=== PATIENT | female | born 1955 | race Caucasian/White ===

== ENCOUNTER 2016-09-30 17:07 | Emergency (ER) | payer MEDICARE, OTHER ==
[~2016-09-30 17:07] MED LIST: ALLEGRA ALLERG180 MG PO; AMITRIPTYLINE H50 MG PO; B-121000 MCG PO; BACTROBAN22 GM TOP; CUBICIN500 MG/10 IV; CYMBALTA60 MG PO; DIABETA5 MG PO; INVANZ IV; JANUVIA100 MG PO; LASIX20 MG PO; LOVENOX40 MG/0.4 SQ; LYRICA200 MG PO; METFORMIN HCL1000 M1 PO; METOPROLOL TART25 MG PO; NITROGLYCERIN0.4 MG SL; PERCOCET 10-321 EACH PO; POTASSIUM CHLO10 ME1 PO; PREDNISONE10 MG PO; PRILOSEC20 MG PO; PRINIVIL10 MG PO; WELLBUTRIN100 MG PO; [UNRECOGNIZED DRUG - OTHER] IV
[2016-10-11] MEDS ORDERED: LASIX20 MG PO (13:53)
[2016-10-11] MEDS ORDERED: PERCOCET 10-321 EACH PO (13:54)
[2016-10-11] MEDS ORDERED: LYRICA200 MG PO (13:54)
[2016-10-11] MEDS ORDERED: ALLEGRA ALLERG180 MG PO (13:55)
[2016-10-11] MEDS ORDERED: ASPIR 8181 MG PO (13:55)
[2016-10-11] MEDS ORDERED: GLYBURIDE5 MG PO (13:55)
[2016-10-11] MEDS ORDERED: FERROUS SULFAT325 MG PO (13:56)
[2016-10-11] MEDS ORDERED: LISINOPRIL20 MG PO (13:56)
[2016-10-11] MEDS ORDERED: WELLBUTRIN SR100 MG PO (13:57)
[2016-10-11] MEDS ORDERED: LOPRESSOR50 MG PO (13:57)
[2016-10-11] MEDS ORDERED: JANUVIA100 MG PO (13:57)
[2016-10-11] MEDS ORDERED: B-122500 MC1 PO (13:58)
[2016-10-11] MEDS ORDERED: LIPITOR20 MG PO (13:58)
[2016-10-11] MEDS ORDERED: NITROGLYCERIN0.4 MG SL (13:59)
[2016-10-11] MEDS ORDERED: COLACE100 MG PO (13:59)
[2016-10-11] MEDS ORDERED: CYMBALTA30 MG PO (14:00)
[2016-10-11] MEDS ORDERED: VITAMIN D31000 UNI1 PO (14:00)
[2016-10-11] MEDS ORDERED: POLYETHYLENE GL17 GM PO (14:01)
[2016-10-11] MEDS ORDERED: FLOMAX0.4 MG PO (14:01)
[2016-10-11] MEDS ORDERED: CEFAZOLIN2 GM/50 ML IV (14:06)
== END 2016-09-30 21:34 | disposition critical access hospital (66) ==
LOC: ER 17:07
DX: A41.9 Sepsis, unspecified organism (principal); E11.9 Type 2 diabetes mellitus without complications; I11.0 Hypertensive heart disease with heart failure; I50.9 Heart failure, unspecified; I25.2 Old myocardial infarction; Z87.891 Personal history of nicotine dependence; Z79.84 Long term (current) use of oral hypoglycemic drugs; Z79.82 Long term (current) use of aspirin; Z79.899 Other long term (current) drug therapy; Z91.013 Allergy to seafood
CPT/HCPCS: 36415; 51702; 87502; 87651; 96361; 96365; 96366; 96368; J3370